=== PATIENT | female | born 1970 | race Caucasian/White ===

== ENCOUNTER 2021-02-12 08:44 | Outpatient (REF) | payer OTHER, SELFPAY ==
[2021-02-12 11:08] LABS: MANUAL DIFF FLAG NO
[2021-02-12 11:19] LABS: Basophils Percent Auto 0.8 % (0-2); Eosinophils Absolute Auto 0.2 X10*3/uL (0.0-0.4); Eosinophils Percent Auto 3.6 % (0-4); Hematocrit 43.1 % (37-47); Hemoglobin 14.1 g/dl (12.0-16.0); Imm Gran Abs Auto 0.01 X10*3/uL (0.00-0.03); Imm Gran Pct Auto 0.2 % (0.0-0.4); Lymphocytes Absolute Auto 1.3 X10*3/uL (1.2-4.9); Lymphocytes Percent Auto 25.1 % (20-40); Mean Corpuscular HGB Conc 32.7 g/dl (31.0-35.0); Mean Corpuscular Hemoglobin 28.8 pg (27.0-33.0); Mean Platelet Volume 9.3 fL (9.4-12.3); Monocytes Absolute Auto 0.4 X10*3/uL (0.1-1.2); Monocytes Percent Auto 7.9 % (2-11); Neutrophils Absolute Auto 3.3 X10*3/uL (2.0-8.3); Neutrophils Percent Auto 62.4 % (45-73); Platelet Count 332 X10*3/uL (160-400); Red Cell Distribution Width 14.1 % (11.0-16.0); White Blood Count 5.2 X10*3/uL (4.8-10.8)
[2021-02-12 11:40] LABS: Alanine Aminotransferase 16 U/L (0-31); Albumin Level 4.8 g/dL (3.5-5.0); Alkaline Phosphatase 77 U/L (39-117); Anion Gap 16 (12-20); Aspartate Amino Transferase 15 U/L (5-31); Bilirubin Total 0.4 mg/dL (0.0-1.0); Blood Urea Nitrogen 9 mg/dL (9-16); Calcium 9.4 mg/dL (8.4-10.2); Carbon Dioxide 25 mmol/L (22-29); Chloride 106 mmol/L (96-108); Cholesterol 161 mg/dL; Estimated Glomerular Filt Rate > 60; Glucose Fasting 106 mg/dL (60-99); HDL Cholesterol 57 mg/dL; LDL Cholesterol Calculated 89 mg/dl; Potassium 4.6 mmol/L (3.3-5.1); Sodium 142 mmol/L (135-145); Total Protein 7.5 g/dL (6.5-8.0); Triglycerides 75 mg/dL
[2021-02-12 11:49] LABS: Vitamin D 25-OH Total 30.9 ng/mL (>30)
== END 2021-02-12 08:45 | disposition home or self-care (01) ==
LOC: HO.HMGCLDS 08:44
PROVIDERS: PCP Internal Medicine; Visit Provider Internal Medicine
DX: E78.00 Pure hypercholesterolemia, unspecified (principal); F41.9 Anxiety disorder, unspecified; L70.9 Acne, unspecified
CPT/HCPCS: 36415; 80053; 80061; 82306; 84443; 85025

== ENCOUNTER 2021-10-26 13:54 | Outpatient (REF) | payer OTHER, SELFPAY ==
[2021-10-26 15:00] LABS: Alanine Aminotransferase 25 U/L (0-31); Alkaline Phosphatase 101 U/L (39-117); Anion Gap 13 (12-20); Aspartate Amino Transferase 17 U/L (5-31); Bilirubin Total 0.3 mg/dL (0.0-1.0); Blood Urea Nitrogen 8 mg/dL (9-16); Calcium 10.6 mg/dL (8.4-10.2); Carbon Dioxide 28 mmol/L (22-29); Chloride 103 mmol/L (96-108); Estimated Glomerular Filt Rate > 60; Glucose Random 87 mg/dL (60-115); Potassium 4.6 mmol/L (3.3-5.1); Sodium 139 mmol/L (135-145); Total Protein 7.9 g/dL (6.5-8.0)
[2021-10-26 15:13] LABS: Thyroid Stimulating Hormone 1.86 uIU/mL (0.32-4.0)
[2021-10-28 05:06] LABS: Prolactin 4.4 ng/mL
== END 2021-10-26 13:55 | disposition home or self-care (01) ==
LOC: HO.LAB 13:54
PROVIDERS: PCP Internal Medicine; Visit Provider Psychiatry & Neurology Neurology
DX: E22.1 Hyperprolactinemia (principal)
CPT/HCPCS: 36415; 80053; 84146; 84443

== ENCOUNTER 2021-11-03 18:08 | Outpatient (REF) | payer OTHER, SELFPAY ==
--- NOTE | ~2021-11-03 | MR_ITS ---
EXAMINATION: MRI OF THE BRAIN WITH AND WITHOUT IV CONTRAST INDICATION: Multiple sclerosis. COMPARISON: Brain MRI 11/08/2017. TECHNIQUE: Multiplanar multisequence MR imaging of the brain was obtained without and following the administration of 7 mL of Gadavist without complication. FINDINGS: Stable pattern T2 signal hyperintense lesions within the supratentorial periventricular and subcortical white matter as well as the corpus callosum in keeping with the patient's history of multiple sclerosis. No new lesions and no enhancing lesions to suggest active demyelination. Multiple chronic low T1 signal intensity lesions are again noted. There is no hydrocephalus, extra-axial surface collection, or herniation. The major flow voids at the skull base are preserved. There is no acute infarct on diffusion-weighted imaging. There is no intracranial hemorrhage on the gradient recalled echo acquisition. The midline structures are normal. The cerebellar tonsils are normally positioned. The craniocervical junction is normal. Osseous marrow signal intensity is homogenous. The visualized soft tissues are unremarkable. MR/MR head/brain wo/w con IMPRESSION: Stable pattern T2 signal hyperintense lesions within the supratentorial periventricular and subcortical white matter as well as the corpus callosum in keeping with the patient's history of multiple sclerosis. No new lesions and no enhancing lesions to suggest active demyelination.
== END 2021-11-03 18:09 | disposition home or self-care (01) ==
LOC: HO.MRI 18:08
PROVIDERS: PCP Internal Medicine; Visit Provider Psychiatry & Neurology Neurology
DX: G35 Multiple sclerosis (principal)
CPT/HCPCS: 70553; A9585

== ENCOUNTER → 2025-04-23 13:48 | Outpatient (BNVA) | payer SELFPAY | PROVIDERS: PCP Internal Medicine; Visit Provider Internal Medicine | DX: Z13.89 Encounter for screening for other disorder (principal) ==

== ENCOUNTER 2025-10-23 10:56 | Outpatient (AMB) | payer OTHER, SELFPAY ==
--- NOTE | 2025-10-23 11:10 | A.OFFVIS_ITS ---
Intake Visit Reasons: f/u Allergies amoxicillin (From AUGMENTIN) Allergy (Severe, Unverified 04/23/25 14:22) ANAPHYLAXIS cephalexin (From KEFLEX) Allergy (Severe, Unverified 04/23/25 14:22) ANAPHYLAXIS clavulanic acid (From AUGMENTIN) Allergy (Severe, Unverified 04/23/25 14:22) ANAPHYLAXIS Penicillins (PENICILLINS) Allergy (Severe, Unverified 04/23/25 14:22) ANAPHYLAXIS TETANUS & DIPHTHERIA TOX,ADULT Allergy (Severe, Uncoded 04/23/25 14:22) SEVERE FLU LIKE SYMPTOMS Keflex Allergy (Unknown, Uncoded 04/23/25 14:22) anaphylaxis PCN Allergy (Unknown, Uncoded 04/23/25 14:22) anaphylaxis tetanus Allergy (Unknown, Uncoded 04/23/25 14:22) flu like symptoms Medication List - Last Reconciled 10/23/25 by Charito Zambrano MD atorvastatin 20 mg PO DAILY modafinil 100 mg (1/2 x 200 mg) PO QAM 30 days sertraline 50 mg PO DAILY spironolactone 100 mg PO DAILY HPI Comments Details: She has been doing well . Has some neck pain in the last month or two. Does some heavy lifting. Uses ADvil occasionally. No change in fatigue. Provigil 100mg helps. Occasionally takes quick nap during the day. Functions well for the most part. Lightheaded dizziness has been under control. Still gets some headaches. Left ear throbbing sharp pressure type and some neck pain. No double vision. No falls. Occasionally legs feel heavy when walking in hot weather. Heat bothers her. Lightheaded and unsteady when tired. Stress out and gets momentary lightheaded dizziness. Numbness is gone. Decreased hearing L > R. Has had 2 brief episodes of diplopia in left eye. In the past, she had decreased hearing in left ear on HT x2 and is stable, less muffled. No tinnitus. MRI brain is stable from 2017. She has history of radiological findings of MS with no clinical symptomatology. Occasional brief lightheadedness and vertigo. [facility] Medical History (Updated 10/23/25 @ 11:12 by Charito Zambrano MD) Multiple sclerosis Generalized anxiety disorder Hyperlipidemia Surgical History (Updated 04/23/25 @ 14:03 by Jean Hernandez MD) History of colonoscopy (03/19/24) Family History Father Smoker Mother Heart problem High cholesterol Social History Housing: House Alcohol intake: current Alcohol intake frequency: holidays/special occasions only Patient Tobacco Use Status: Former Tobacco user service: No Current occupational status: employed Cognitive needs: No Hearing needs: No Vision needs: Yes (reading glasses) Review of Systems Const Details: General/Constitutional:? Change in appetitedenies.? Fatiguedenies.? Feverdenies.? Weight gaindenies.? Weight lossdenies. ???Sleep:? Difficulty getting to sleepdenies.? Difficulty maintaining sleepdenies?.? Daytime sleepinessdenies. ???Respiratory:? Shortness of breathdenies.? Chest paindenies. ???Cardiovascular:? Chest pain at restdenies.? Chest pain with exertiondenies.? Dizzinessdenies.? Fluid accumulation in the legsdenies.? Irregular heartbeatdenies.? Palpitations denies. ???Gastrointestinal:? Constipationdenies.? Diarrheadenies.? Difficulty swallowingdenies.? Heartburn denies.? Nauseadenies. ???Genitourinary:? Frequent urinationdenies.? Urgencydenies.? Incontinencedenies. ???Musculoskeletal:? Neck paindenies.? Back paindenies.? Joint stiffnessdenies.? Sciaticadenies. ???Neurologic:? Difficulty swallowingdenies.? Balance difficultydenies.? Coordinationnormal.? Difficulty speakingdenies.? Dizzinessdenies.? Faintingdenies.? Gait abnormality denies.? Headacheadmits.? Loss of strengthdenies.? Loss of use of extremity denies.? Low back paindenies.? Memory lossdenies.? Seizuresdenies.? Ticsdenies.? Tingling/Numbnessdenies.? Transient loss of visiondenies.? Tremordenies. ???Psychiatric:? Anxietyadmits.? Auditory/visual hallucinationsdenies.? Delusionsdenies.? Depressed mooddenies.? Stressorsadmits.? Suicidal thoughtsdenies. Physical Exam Neuro Other: Neurological: Abnormal neurological findings:??none.?Mental Status:??alert and oriented X 3,?Normal attention, orientation, memory and affect.?Cranial Nerves:??Pupils are equal, round and reactive to light. Fundoscopy shows normal disc bilaterally. External occular muscles are intact. Visual landaverde are full, no ptosis. Face is symmetrical, no facial weakness or droop. Facial sensations are normal. Tongue protrudes in midline. Palate elevates symmetrically. Shoulder shrugging is normal..?Motor Examination:??Normal muscle tone, bulk and strength,?No atrophy or fasciculations,?No drift of the extended upper extremities,?Deep tendon reflexes are 2+?,?Plantars are flexor?.?Straight Leg Raising:??90 degrees.?Sensory Exam:??Normal light touch, temperature, pinprick, vibration and joint-position sensations?,?Rhomberg sign is absent.?Coordination:??no ataxia,?no titubation,?[id number], [id number] test and rapid alternating movements were normal.?Gait Exam:??Within normal limits.?Cerebellar Signs:??Udwvah-[id number]-tphb and lvke-gy-wzby is normal,?no dysdiadochokinesia?.?Extrapyramidal System:??No tremor, rigidity with normal facial expressions,?No bradykinesia, no bradyphrenia. Normal arm swing and posture. No propulsion or retropulsion.?Speech:??Normal,?no dysphasia or dysarthria..? General Examination: GENERAL APPEARANCE:??normal,?in no acute distress.?HEART:??S1, S2 normal,?no murmurs.?LUNGS:??clear anteriorly and posteriorly.?MUSCULOSKELETAL:??normal.?EXTREMITIES:??no edema.?PSYCH:??alert, oriented,?cognitive function intact,?cooperative with exam.? Mini Mental Status Exam: Level of Consciousness:??Alert.?Orientation:??Knows correct year, month, date, day and season,?Knows correct city, county and state. Knows correct location and floor.?Registration:??Able to register 3 objects.?Attention:??Serial 7's performed accurately.?Recall:??Able to recall 3 out of 3 objects .?Language:??Normal spontaneous speech, fluency, repetition,naming, comprehension, reading and writing.?Total Score:??.? Assessment & Plan Assessment & Plan (1) Multiple sclerosis: Comment: Last MRI was Oct 2021 and was stable from 2016. She has opted not to start disease modifying therapies and has remained clinically and radiologically stable. Code(s): G35.D - Multiple sclerosis, unspecified Category: Medical (2) Generalized anxiety disorder: Code(s): F41.1 - Generalized anxiety disorder Category: Medical Plan Continue Provigil. Stable MS asymptomatic. Medications: Changed From modafinil 100 mg (1/2 x 200 mg) PO QAM 30 days 15 tabs 0RF To modafinil 100 mg (1/2 x 200 mg) PO BID 30 tabs 0RF 30 days Coding Level of Care Code Est Pt Level 4 (00116) Diagnoses Multiple sclerosis G35.D Generalized anxiety disorder F41.1
== END 2025-10-23 11:21 | disposition home or self-care (01) ==
LOC: HO.HSM 10:57
PROVIDERS: PCP Internal Medicine; Visit Provider Psychiatry & Neurology Neurology
DX: G35.D Multiple sclerosis, unspecified (principal); F41.1 Generalized anxiety disorder
CPT/HCPCS: 99214